=== PATIENT | male | born 1990 | race Caucasian/White ===

== ENCOUNTER 2022-08-09 09:10 | Emergency (ER) | payer SELFPAY ==
--- OUTSIDE RECORDS SUMMARY | 2022-08-09 09:13 | XMS REPORT | Continuity of Care Document ---
:1990 Author Organization [facility] t Address [address] [facility] [address] [place] [address] Care Team Providers Name Role Phone Unavailable Unavailable Unavailable Problems Condition Condition Condition Status Onset Resolution Last Treating Co mments Source Name Details Category Date Date Treatment Clinician Date Back pain Problem Active [facility] Upper Problem Active [facility] respirator S y tract Health infection Low back Problem Inactiv ZACARIAS U pain e S Health Suicidal Problem Inactiv Z[facility] U ideation e S Health Tinea Problem Inactiv [facility] corporis e S Health Gastroesop Problem Active [facility]al S reflux Health disease Heel pain Problem Active [facility] Acute [facility] Spasm of Problem Active [facility] back S muscles Health Allergies, Adverse Reactions, Alerts Allergy Allergy Status Severity Reaction(s) Onset Inactive Treating Comm ents Source Name Type Date Date Clinician No Known Allergy Active Mild [facility] Drug to 5-05 S Allergmauro substanc 00:00: Health s e 00 Social History Social Habit Start Date Stop Date Quantity Comments Source Sex Assigned At [birth year] Male [facility] [employer] 00:00:00 00:00:00 Smoking Status Start Date Stop Date Source Smokes tobacco daily (finding) 2019-01-16 20:21:00 [facility] [employer] Medications Ordered Filled Start Stop Current Ordering Indication Dosage Frequency Signature Comments Components Source Medication Medication Date Date Medication? Clinician (SIG) Name Name Fluconazole 2018-03 No 150mg Once A [facility]STU 03-18 Week S 21:19: Health 00 Ketoconazol 2018-03 No 1 Four Times [facility] e 03-18 Daily S 21:19: Health 00 Miscellaneo No 0 Xx For ZACARIAS U us Order Sets S Information Health Vital Signs Vital Name Observation Time Observation Value Comments Source Heart Rate 2019-01-16 21:27:00 99 /min [facility] [employer] Respiratory rate 2019-01-16 21:27:00 15 /min [facility] BP Systolic 2019-01-16 21:27:00 164 mm[Hg] [facility] [employer] BP Diastolic 2019-01-16 21:27:00 73 mm[Hg] [facility] [employer] Body Temperature 2019-01-16 21:27:00 99.0 [degF] [facility] Rate 2019-01-16 19:34:00 99 /min [facility] Respiratory rate 2019-01-16 19:34:00 15 /min [facility] [employer] BP Systolic 2019-01-16 19:34:00 164 mm[Hg] [facility] [employer] BP Diastolic 2019-01-16 19:34:00 73 mm[Hg] [facility] [employer] Procedures This patient has no known procedures. Encounters Start End Encounter Admission Attending Care Care Encounter Source Date/Time Date/Time Type Type Clinicians Facility Department ID 2019-01-16 [facility] [address] [id number] 21:00:00 21:37:00 Emergency [facility] [address] [facility] Results This patient has no known results.
--- NOTE | 2022-08-09 09:51 | ER ---
Nurse's Notes [facility] Name: Nghia Brito Age: 32 yrs Sex: Male : 1990 Arrival Date: 08/09/2022 Time: 09:10 Bed Treatment Private MD: Diagnosis: Impacted cerumen, left ear;Otalgia, left ear Presentation: 08/09 09:27 Chief complaint: Patient states: Left ear pain for a couple days after washing hair nj1 under faucet. Coronavirus screen: Vaccine status: Patient reports being unvaccinated. Ebola Screen: No symptoms or risks identified at this time. Initial Sepsis Screen: Does the patient meet any 2 criteria? No. Patient's initial sepsis screen is negative. Does the patient have a suspected source of infection? No. Patient's initial sepsis screen is negative. Risk Assessment: Do you want to hurt yourself or someone else? Patient reports no desire to harm self or others. Onset of symptoms was August 07, 2022. 09:27 Method Of Arrival: Ambulatory [facility] 09:27 Acuity: FAHAD 4 [facility] Triage Assessment: 09:30 General: Appears in no apparent distress. comfortable, Behavior is calm, cooperative, nj1 appropriate for age. Pain: Complains of pain in left ear Pain currently is 2 out of 10 on a pain scale. Quality of pain is described as "muffled". EENT: Reports Left ear feels "muffled" . 09:30 Neuro: Level of Consciousness is awake, alert, Oriented to person, place, time, [facility] situation. Cardiovascular: Patient's skin is warm and dry. Respiratory: Airway is patent Respiratory effort is even, unlabored. Historical: - Allergies: 09:30 No Known Allergies; nj1 - Home Meds: 09:30 Albuterol Inhl [Active]; nj1 - PMHx: 09:30 Asthma; nj1 - PSHx: 09:30 None; nj1 - Immunization history:: Client reports having NOT received the Covid vaccine. - Social history:: Smoking status: Reported history of juuling and/or vaping. Vital Signs: 09:27 BP 155 / 94; Pulse 84; Resp 16; Temp 98.3; Pulse Ox 98% on R/A; Weight 70.31 kg; Height nj1 5 ft. 10 in. ; Pain 2/10; 10:00 BP 146 / 75; Pulse 69; Resp 16; Pulse Ox 100% ; Pain 2/10; nj1 09:27 Body Mass Index 22.24 (70.31 kg, 177.8 cm) nj1 09:27 Pain Scale: Adult nj1 10:00 Pain Scale: Adult nj1 ED Course: 09:11 Patient arrived in ED. rg4 09:18 Steve Joya DO is Attending Physician. ms3 09:30 Triage completed. nj1 09:31 Arm band placed on right wrist. nj1 09:49 Emmy Brown MD is Referral Physician. ms3 10:00 No provider procedures requiring assistance completed. Patient did not have IV access nj1 during this emergency room visit. Administered Medications: No medications were administered Outcome: 09:50 Discharge ordered by . ms3 10:01 Discharged to home ambulatory. nj1 10:01 Condition: improved 10:01 Discharge instructions given to patient, Instructed on discharge instructions, follow up and referral plans. Demonstrated understanding of instructions, follow-up care. 10:01 Patient left the ED. nj1 Signatures: Candy Lopez rg4 Steve Joya DO DO ms3 Sabrina Pineda, RN RN nj1 Corrections: (The following items were deleted from the chart) 10:00 09:58 General: Appears in no apparent distress. comfortable, Behavior is calm, nj1 cooperative, appropriate for age, nj1 10:00 09:58 Pain: Complains of pain in left ear Pain currently is 2 out of 10 on a pain nj1 scale. Quality of pain is described as "muffled" nj1 10:00 09:58 EENT: Reports Left ear feels "muffled" . nj1 nj1
--- NOTE | 2022-08-09 09:51 | EDPHYS ---
Physician Documentation [facility] Name: Nghia Brito Age: 32 yrs Sex: Male : 1990 Arrival Date: 08/09/2022 Time: 09:10 Bed Treatment Private MD: ED Physician Steve Joya HPI: 08/09 09:34 This 32 yrs old Male presents to ER via Ambulatory with complaints of Ear Pain. ms3 09:34 32-year-old male with past medical history of asthma presents for left-sided ear pain ms3 that began 5 days ago after getting water in his ear. Patient states since that time he has had muffled hearing. Patient states his discomfort is a 2/10. Patient denies alleviating factors. Patient states his symptoms became worse after showering this morning.. Historical: - Allergies: 09:30 No Known Allergies; nj1 - Home Meds: 09:30 Albuterol Inhl [Active]; nj1 - PMHx: 09:30 Asthma; nj1 - PSHx: 09:30 None; nj1 - Immunization history:: Client reports having NOT received the Covid vaccine. - Social history:: Smoking status: Reported history of juuling and/or vaping. ROS: 09:34 Constitutional: Negative for fever, and chills. Neck: Negative for injury, pain, and ms3 swelling, Cardiovascular: Negative for chest pain, and palpitations. Respiratory: Negative for shortness of breath, cough, wheezing, and pleuritic chest pain, Abdomen/GI: Negative for abdominal pain, nausea, vomiting, diarrhea, and constipation. 09:34 MS/Extremity: Negative for injury and deformity. 09:34 ENT: Positive for ear pain. 09:34 All other systems are negative. Exam: 09:34 Constitutional: This is a well developed, well nourished patient who is awake, alert, ms3 and in no acute distress. Head/Face: Normocephalic, atraumatic. Eyes: Pupils equal round and reactive to light, extra-ocular motions intact. Lids and lashes normal. Conjunctiva and sclera are non-icteric and not injected. Periorbital areas with no swelling, redness, or edema. 09:34 Chest/axilla: Normal chest wall appearance and motion. Nontender with no deformity. Cardiovascular: Regular rate and rhythm with a normal S1 and S2. No gallops, murmurs, or rubs. Normal PMI, no JVD. No pulse deficits. Respiratory: Lungs have equal breath sounds bilaterally, clear to auscultation and percussion. No rales, rhonchi or wheezes noted. No increased work of breathing, no retractions or nasal flaring. Abdomen/GI: Soft, non-tender, with normal bowel sounds. No distension or tympany. No guarding or rebound. No evidence of tenderness throughout. Skin: Warm, dry with normal turgor. Normal color with no rashes, no lesions, and no evidence of cellulitis. MS/ Extremity: Pulses equal, no cyanosis. Neurovascular intact. Full, normal range of motion. 09:34 ENT: External ear(s): no acute changes, Ear canal(s): cerumen impaction, that is moderate, occluding the left ear canal. Vital Signs: 09:27 BP 155 / 94; Pulse 84; Resp 16; Temp 98.3; Pulse Ox 98% on R/A; Weight 70.31 kg; Height nj1 5 ft. 10 in. ; Pain 2/10; 10:00 BP 146 / 75; Pulse 69; Resp 16; Pulse Ox 100% ; Pain 2/10; nj1 09:27 Body Mass Index 22.24 (70.31 kg, 177.8 cm) nj1 09:27 Pain Scale: Adult nj1 10:00 Pain Scale: Adult nj1 Procedures: 14:53 Ear irrigation: Route left ear with Normal Saline amount 500ml Patient tolerated well. ms3 MDM: 09:30 Patient medically screened. ms3 09:34 Differential diagnosis: cerumen impaction. ms3 14:52 Data reviewed: vital signs, nurses notes, and as a result, I will discharge patient. ms3 Counseling: I had a detailed discussion with the patient and/or guardian regarding: the historical points, exam findings, and any diagnostic results supporting the discharge/admit diagnosis, the need for outpatient follow up, to return to the emergency department if symptoms worsen or persist or if there are any questions or concerns that arise at home. Response to treatment: the patient's symptoms have markedly improved after treatment, and as a result, I will discharge patient. Administered Medications: No medications were administered Disposition Summary: 08/09/22 09:50 Discharge Ordered Location: Home ms3 Condition: Stable ms3 Diagnosis - Impacted cerumen, left ear ms3 - Otalgia, left ear ms3 Followup: ms3 - With: Emmy Brown MD - When: As needed - Reason: Discharge Instructions: - Discharge Summary Sheet ms3 - Earwax Buildup, Adult ms3 Forms: - Medication Reconciliation Form ms3 - Thank You Letter ms3 - Antibiotic Education ms3 - Prescription Opioid Use ms3 Signatures: Steve Joya, DO ms3 Sabrina Pineda, RN RN nj1
[2022-08-09 10:05] VITALS: TEMP 98.3
[2022-08-09 10:07] VITALS: BP 146/75; O2SAT 100
== END 2022-08-09 10:01 | disposition home or self-care (01) ==
LOC: ER 09:10
PROC: 3E1B78Z Irrigation of Ear using Irrigating Substance, Via Natural or Artificial Opening (ICD-10-PCS; principal; 2022-08-09)
DX: H61.22 Impacted cerumen, left ear (principal)
CPT/HCPCS: 99282

== ENCOUNTER 2024-10-29 11:15 | Emergency (ER) | payer SELFPAY ==
[2024-10-29 12:13] LABS: Absolute Lymphocytes (CBC) 2.8 K/uL (0.7-4.9); Hematocrit 44.4 % (39.6-49.0); Hemoglobin 15.1 g/dL (13.6-17.9); MCH 30.2 pg (27.0-35.0); MCHC 34.0 g/dL (32.0-36.0); MCV 88.6 fL (80-100); MPV 7.1 fL (7.6-11.3); Nucleated RBC Absolute Count 0.0 (0-0); Nucleated Red Blood Cells % 0.2 % (0-0); RBC Red Blood Cell Count 5.00 M/uL (4.33-5.43); White Blood Count 6.70 thou/uL (4.3-10.9)
[2024-10-29 12:28] LABS: Anion Gap 7.6 mEq/L (5.0-15.0); BUN Blood Urea Nitrogen 12.0 mg/dL (7-18); Glucose Level 111.0 mg/dL (74-106); Potassium 4.6 mEq/L (3.5-5.1)
--- NOTE | 2024-10-29 12:46 | EDPHYS ---
Physician Documentation [facility] Name: Nghia Brito Age: 34 yrs Sex: Male : 1990 Arrival Date: 10/29/2024 Time: 11:15 Bed 18 Private MD: ED Physician Steve Joya HPI: 10/29 12:45 This 34 yrs old Male presents to ER via Ambulatory with complaints of Bloody Stools. ms3 12:45 34-year-old male with past medical history of asthma presents to the emergency ms3 department for bloody bowel movement that occurred 20 minutes prior to arrival. Patient states he has not previously experienced this. Patient denies pain. Patient denies nausea, vomiting, fevers, chills.. Historical: - Allergies: 11:30 No Known Allergies; aa5 - PMHx: 11:30 Asthma; aa5 - PSHx: 11:32 None; aa5 - Immunization history:: Adult Immunizations unknown. - Infectious Disease History:: Denies. - Social history:: Smoking status: Reported history of juuling and/or vaping. ROS: 12:45 Constitutional: Negative for fever, and chills. Cardiovascular: Negative for chest ms3 pain, and palpitations. Respiratory: Negative for shortness of breath, cough, wheezing, and pleuritic chest pain, 12:45 MS/Extremity: Negative for injury and deformity, Skin: Negative for injury, rash, and discoloration, 12:45 Abdomen/GI: Positive for rectal bleeding, Exam: 12:45 Constitutional: This is a well developed, well nourished patient who is awake, alert, ms3 and in no acute distress. Chest/axilla: Normal chest wall appearance and motion. Nontender with no deformity. Cardiovascular: Regular rate and rhythm with a normal S1 and S2. No gallops, murmurs, or rubs. Normal PMI, no JVD. No pulse deficits. Respiratory: Lungs have equal breath sounds bilaterally, clear to auscultation and percussion. No rales, rhonchi or wheezes noted. No increased work of breathing, no retractions or nasal flaring. Skin: Warm, dry with normal turgor. Normal color with no rashes, no lesions, and no evidence of cellulitis. MS/ Extremity: Pulses equal, no cyanosis. Neurovascular intact. Full, normal range of motion. 12:45 Abdomen/GI: Inspection: abdomen appears normal, Bowel sounds: normal, Palpation: abdomen is soft and non-tender, Rectal exam: rectal tone normal, Stool: No gross blood on rectal exam. No fissures noted. Shayy Weaver, Vital Signs: 11:30 BP 146 / 91; Pulse 77; Resp 18 S; Temp 98.3(O); Pulse Ox 100% on R/A; Weight 77.11 kg aa5 (R); Height 5 ft. 10 in. (R); 12:30 BP 124 / 59; Pulse 62; Resp 18; Pulse Ox 100% on R/A; kj2 12:58 BP 121 / 60; Pulse 64; Resp 18; Temp 98; Pulse Ox 100% on R/A; kj2 11:30 Body Mass Index 24.39 (77.11 kg, 177.8 cm) aa5 MDM: 11:27 Medical Screening Exam initiated ms3 12:45 Differential diagnosis: Internal hemorrhoids versus AV malformation versus ms3 diverticulitis. Data reviewed: vital signs, nurses notes, lab test result(s), and as a result, I will discharge patient. Counseling: I had a detailed discussion with the patient and/or guardian regarding the historical points, exam findings, and any diagnostic results supporting the discharge/admit diagnosis, lab results, the need for outpatient follow up, to return to the emergency department if symptoms worsen or persist or if there are any questions or concerns that arise at home. Special discussion: I discussed with the patient/guardian in detail that at this point there is no indication for admission to the hospital. It is understood, however, that if the symptoms persist or worsen the patient needs to return immediately for re-evaluation. ED course: CBC does not reveal anemia, rectal exam without gross blood on exam. Patient is without bloody bowel movements while in the emergency department. Patient's abdomen is benign. Patient to follow-up with Dr. Larson. All questions were answered. Return precautions discussed including worsening bleeding, abdominal pain, fevers, worsening symptoms, or any other concerns.. 10/29 11:19 Order name: CBC with Diff; Complete Time: 12:40 ms3 10/29 11:19 Order name: BMP; Complete Time: 12:40 ms3 Administered Medications: No medications were administered Disposition Summary: 10/29/24 12:45 Discharge Ordered Notes: Location: Home ms3 Condition: Stable ms3 Diagnosis - Rectal bleeding ms3 - Unspecified hemorrhoids ms3 Followup: ms3 - With: Robby Larson MD - When: 2 - 3 days - Reason: Recheck today's complaints Discharge Instructions: - Discharge Summary Sheet ms3 - High-Fiber Eating Plan ms3 - Hemorrhoids ms3 - Rectal Bleeding, [id number] ms3 Forms: - Medication Reconciliation Form ms3 - Antibiotic Education ms3 - Prescription Opioid Use ms3 - Patient Portal Instructions ms3 - Leadership Thank You Letter ms3 Signatures: Dispatcher [employer] Jeannine Ashton RN RN aa5 Steve Joya DO DO ms3 Corrections: (The following items were deleted from the chart) 17:58 17:56 34-year-old male with past medical history of asthma presents to the emergency ms3 department for bloody bowel movement that occurred 20 minutes prior to arrival. Patient states he has not previously experienced this. Patient denies pain. Patient denies nausea, vomiting, fevers, chills.. ms3 17:58 17:56 This 34 yrs old Male presents to ER via Ambulatory with complaints of Bloody ms3 Stools. ms3
--- NOTE | 2024-10-29 12:46 | ER ---
Nurse's Notes [facility] Name: Nghia Brito Age: 34 yrs Sex: Male : 1990 Arrival Date: 10/29/2024 Time: 11:15 Bed 18 Private MD: Diagnosis: Rectal bleeding;Unspecified hemorrhoids Presentation: 10/29 11:30 Chief complaint: Patient states: "I noticed blood in the toilet today when I went to [facility] use the restroom". Pt reports rectal bleeding. Coronavirus screen: At this time, the client does not indicate any symptoms associated with coronavirus-19. Ebola Screen: Patient denies travel to an Ebola-affected area in the 21 days before illness onset. Initial Sepsis Screen: Does the patient meet any 2 criteria? No. Patient's initial sepsis screen is negative. Does the patient have a suspected source of infection? No. Patient's initial sepsis screen is negative. Risk Assessment: Do you want to hurt yourself or someone else? Patient reports no desire to harm self or others. Onset of symptoms was October 2024. 11:30 Acuity: FAHAD 3 aa5 11:30 Method Of Arrival: Ambulatory aa5 Historical: - Allergies: 11:30 No Known Allergies; aa5 - PMHx: 11:30 Asthma; aa5 - PSHx: 11:32 None; aa5 - Immunization history:: Adult Immunizations unknown. - Infectious Disease History:: Denies. - Social history:: Smoking status: Reported history of juuling and/or vaping. Screenin:29 [facility] ED Fall Risk Assessment (Adult) History of falling in the last 3 months, kj2 including since admission No falls in past 3 months (0 pts) Confusion or Disorientation No (0 pts) Intoxicated or Sedated No (0 pts) Impaired Gait No (0 pts) Mobility Assist Device Used No (0 pt) Altered Elimination No (0 pt) Score/Fall Risk Level 0 - 2 = Low Risk Maintained a safe environment, Hourly rounding (assess needs \\T\\ fall precautionary measures) done. Abuse screen: Denies threats or abuse. Denies injuries from another. Nutritional screening: No deficits noted. Tuberculosis screening: No symptoms or risk factors identified. Assessment: 12:28 General: Appears in no apparent distress. Behavior is cooperative. Pain: Denies pain. kj2 Neuro: Level of Consciousness is awake, alert, obeys commands, Oriented to person, place, time, situation. Cardiovascular: Patient's skin is warm and dry. Respiratory: Airway is patent Respiratory effort is even, unlabored. GI: Reports rectal bleeding. : No signs and/or symptoms were reported regarding the genitourinary system. 12:58 Reassessment: Patient appears in no apparent distress at this time. Patient and/or kj2 family updated on plan of care and expected duration. Pain level reassessed. Patient is alert, oriented x 3, equal unlabored respirations, skin warm/dry/pink. Vital Signs: 11:30 BP 146 / 91; Pulse 77; Resp 18 S; Temp 98.3(O); Pulse Ox 100% on R/A; Weight 77.11 kg aa5 (R); Height 5 ft. 10 in. (R); 12:30 BP 124 / 59; Pulse 62; Resp 18; Pulse Ox 100% on R/A; kj2 12:58 BP 121 / 60; Pulse 64; Resp 18; Temp 98; Pulse Ox 100% on R/A; kj2 11:30 Body Mass Index 24.39 (77.11 kg, 177.8 cm) aa5 ED Course: 11:18 Patient arrived in ED. cj3 11:19 Steve Joya DO is Attending Physician. ms3 11:30 Arm band placed on. aa5 11:31 Triage completed. aa5 12:06 Inserted saline lock: 20 gauge in right antecubital area, using aseptic technique. sa1 Blood collected. Flushed with 10 mL NS. 12:06 Initial lab(s) drawn, by me, sent to lab. sa1 12:28 Randa Mcguire, RN is Primary Nurse. kj2 12:30 Patient has correct armband on for positive identification. Bed in low position. Call kj2 light in reach. Provided Education on: call light. 12:45 Robby Larson MD is Referral Physician. ms3 12:56 No provider procedures requiring assistance completed. IV discontinued, intact, kj2 bleeding controlled, No redness/swelling at site. Pressure dressing applied. Administered Medications: No medications were administered Medication: 12:57 VIS not applicable for this client. kj2 Outcome: 12:45 Discharge ordered by . ms3 12:56 Discharged to home ambulatory, kj2 12:56 Condition: stable 12:56 Discharge instructions given to patient, Instructed on discharge instructions, follow up and referral plans. Demonstrated understanding of instructions, follow-up care, 13:13 Patient left the ED. kj2 Signatures: Jeannine Burt, RN RN aa5 Steve Joya DO DO ms3 Sultan Rolando sa1 Randa Mcguire RN RN kj2 Cindy Pablo cj3
[2024-10-29 13:17] VITALS: O2SAT 100
[2024-10-29 13:20] VITALS: BP 121/60; TEMP 98
== END 2024-10-29 13:13 | disposition home or self-care (01) ==
LOC: ER 11:15
DX: K64.9 Unspecified hemorrhoids (principal)
CPT/HCPCS: 36415; 80048; 85025; 99284